=== PATIENT | male | born 2000 | race Caucasian/White ===

== ENCOUNTER 2018-09-20 07:46 | Emergency (ER) | payer BC ==
[~2018-09-20] VITALS: Ht 175.3 cm; Wt 75.0 kg
[2018-09-20 07:52] VITALS: TEMP 97.5
[2018-09-20] MEDS ORDERED: ZITHROMAX Z PA250 MG PO (08:50)
[2018-09-20] MEDS ORDERED: MEDROL 4MG DOSPA4 MG PO (08:50)
[2018-09-20] MEDS ORDERED: PROAIR HFA0.09 MG/AC IH (08:50)
[2018-09-20 09:28] VITALS: BP 128/66; PULSE 80
== END 2018-09-20 09:29 | disposition home or self-care (01) ==
LOC: COL.ER 07:46
DX: J40 Bronchitis, not specified as acute or chronic (principal); Z77.120 Contact with and (suspected) exposure to mold (toxic)
CPT/HCPCS: J1100